=== PATIENT | female | born 1935 | race African-American/Black ===

== ENCOUNTER 2023-11-24 15:59 | Inpatient (IN) | payer MEDICARE, BC ==
[~2023-11-24] VITALS: Ht 142.2 cm; Wt 40.7 kg
[2023-11-24 19:30] VITALS: PULSE 64; RESP 20; O2SAT 98
[2023-11-24 20:17] LABS: Chloride 107 mmol/L (98-107); Potassium 3.4 mmol/L (3.5-5.1); Sodium 141 mmol/L (136-145)
[2023-11-24 20:18] LABS: Anion Gap 6 (5-15); Carbon Dioxide 28 mmol/L (20-30)
[2023-11-24 20:20] LABS: Basophils # (auto) 0.1 10 ^3/uL (0-0.2); Basophils % (auto) 0.4 % (0.0-2.0); Eosinophils # (auto) 0.2 10 ^3/uL (0-0.8); Eosinophils % (auto) 1.5 % (0.0-7.0); Hematocrit 36.5 % (36.0-46.0); Lymphocytes # (auto) 1.2 10 ^3/uL (0.4-5.4); Lymphocytes % (auto) 8.2 % (10.0-50.0); Mean Corpuscular Hemoglobin 29.1 pg (28.0-32.0); Mean Corpuscular Hgb Conc. 32.7 g/dL (32.0-36.0); Mean Corpuscular Volume 88.9 fL (80.0-100.0); Monocytes # (auto) 0.7 10 ^3/uL (0-1.3); Neutrophils # (auto) 12.5 10 ^3/uL (1.6-8.6); Neutrophils % (auto) 84.9 % (37.0-80.0); Nucleated Red Blood Cells % 0.1 %; Red Blood Cells 4.11 10^6/uL (4.0-5.20); Red Cell Distribution Width 16.5 % (11.8-14.3); White Blood Cell 14.8 10^3/uL (4.4-10.8)
[2023-11-24 20:24] LABS: BUN/Creatinine Ratio 14.9 (10.0-20.0); Blood Urea Nitrogen 13 mg/dL (9-23); Glucose 86 mg/dL (74-106)
[2023-11-24 20:34] LABS: INR 1.03 (0.9-1.15); Partial Thromboplastin Time 24.5 SEC (24.5-34.5); Prothrombin Time 10.8 sec (9.3-11.8)
[2023-11-24] MEDS: MORPHINE SULFATE INJ 2 MG/ml SYRG IV ONE (21:12)
[2023-11-24] MEDS: ONDANSETRON HCL 4 MG/2 ML VIAL IV ONE (21:12)
[2023-11-24] MEDS ORDERED: ONDANSETRON HCL 4 MG/2 ML VIAL IV PRN (21:15)
[2023-11-24] MEDS ORDERED: DOCUSATE SOD 100 MG CAP PO PRN (21:15)
[2023-11-24] MEDS ORDERED: ACETAMINOPHEN 325 MG TAB PO PRN (21:15)
[2023-11-24] MEDS ORDERED: HYDROcodone-ACET 5/325MG TAB PO PRN (21:15)
[2023-11-24] MEDS ORDERED: hydrALAZINE HCL 20 MG/ML VL IV PRN (21:15)
[2023-11-24] MEDS: SODIUM CHLOR 0.9% PF (SALINE LOCK) 10ML VIAL/SYR IV SCH (21:37)
[2023-11-24] MEDS: DONEPEZIL HYDROCHLORIDE 5 MG TAB PO SCH (21:53)
[2023-11-24] MEDS: POTASSIUM CHL 20 Meq TABLET PO ONE (21:54)
[2023-11-24] MEDS: D5W/SOD CHL 0.45% 1,000 ML IV SCH (21:55)
[2023-11-24] MEDS ORDERED: NITROGLYCERIN 0.4 MG SL TAB SL PRN (22:15)
[2023-11-24] MEDS ORDERED: MORPHINE SULFATE INJ 2 MG/ml SYRG IV PRN (22:15)
[2023-11-24 23:39] LABS: Urine Bacteria FEW /hpf (None Seen); Urine Blood Negative /uL (Negative); Urine Clarity Clear (Clear); Urine Protein, UAD Negative (Negative); Urine Specific Gravity 1.011 (1.001-1.035); Urine Urobilinogen Normal (Negative); Urine WBC <1 /hpf (0 - 5)
[2023-11-24 23:46] LABS: Urine Color Straw (Yellow)
[2023-11-25] VITALS (9 sets, daily range): BP systolic 140–152; BP diastolic 75–96; PULSE 56–76; RESP 14–20; TEMP 97.2–99; O2SAT 77–98
[2023-11-25 06:10] LABS: Basophils # (auto) 0.1 10 ^3/uL (0-0.2); Basophils % (auto) 0.8 % (0.0-2.0); Eosinophils # (auto) 0.3 10 ^3/uL (0-0.8); Eosinophils % (auto) 4.2 % (0.0-7.0); Hematocrit 33.1 % (36.0-46.0); Hemoglobin 11.1 g/dL (12.2-16.2); Lymphocytes # (auto) 1.2 10 ^3/uL (0.4-5.4); Lymphocytes % (auto) 14.9 % (10.0-50.0); Mean Corpuscular Hemoglobin 29.6 pg (28.0-32.0); Mean Corpuscular Hgb Conc. 33.6 g/dL (32.0-36.0); Mean Corpuscular Volume 88.1 fL (80.0-100.0); Monocytes # (auto) 0.5 10 ^3/uL (0-1.3); Monocytes % (auto) 6.2 % (0.0-12.0); Neutrophils # (auto) 6.2 10 ^3/uL (1.6-8.6); Neutrophils % (auto) 73.9 % (37.0-80.0); Nucleated Red Blood Cells % 0.1 %; Red Blood Cells 3.76 10^6/uL (4.0-5.20); Red Cell Distribution Width 16.3 % (11.8-14.3); White Blood Cell 8.3 10^3/uL (4.4-10.8)
[2023-11-25 06:17] LABS: Alanine Aminotransferase 20 U/L (7-40); Albumin 3.4 g/dL (3.2-4.8); Alkaline Phosphatase 72 U/L (46-116); Anion Gap 5 (5-15); Aspartate Aminotransferase 31 U/L (13-40); BUN/Creatinine Ratio 14.5 (10.0-20.0); Bilirubin, Total 0.8 mg/dL (0.2-1.0); Blood Urea Nitrogen 12 mg/dL (9-23); Calcium 8.5 mg/dL (8.7-10.4); Carbon Dioxide 27 mmol/L (20-30); Chloride 108 mmol/L (98-107); Glucose 88 mg/dL (74-106); Potassium 4.3 mmol/L (3.5-5.1); Sodium 140 mmol/L (136-145)
[2023-11-25 06:18] LABS: Total Protein 6.2 g/dL (5.7-8.2)
[2023-11-25] MEDS: amLODIPine BESYLATE 5 MG TAB PO SCH (10:00)
[2023-11-25] MEDS: levoFLOXacin 500MG 100 ML IV ONE (10:17)
[2023-11-25] MEDS: ENOXAPARIN SOD 30 MG/0.3 ML SYRINGE SC SCH (10:19)
[2023-11-25] MEDS: MORPHINE SULFATE INJ 2 MG/ml SYRG IV PRN (15:51)
[2023-11-25] MEDS: hydrALAZINE HCL 20 MG/ML VL IV PRN (22:11)
[2023-11-26] VITALS (7 sets, daily range): BP systolic 123–160; BP diastolic 65–87; PULSE 18–98; RESP 15–16; TEMP 97.8–99; O2SAT 92–95
[2023-11-26 09:25] LABS: Basophils # (auto) 0.1 10 ^3/uL (0-0.2); Basophils % (auto) 0.4 % (0.0-2.0); Eosinophils # (auto) 0.1 10 ^3/uL (0-0.8); Eosinophils % (auto) 1.2 % (0.0-7.0); Hematocrit 38.4 % (36.0-46.0); Hemoglobin 12.4 g/dL (12.2-16.2); Lymphocytes # (auto) 1.3 10 ^3/uL (0.4-5.4); Lymphocytes % (auto) 10.9 % (10.0-50.0); Mean Corpuscular Hemoglobin 29.5 pg (28.0-32.0); Mean Corpuscular Hgb Conc. 32.3 g/dL (32.0-36.0); Mean Corpuscular Volume 91.3 fL (80.0-100.0); Monocytes # (auto) 0.8 10 ^3/uL (0-1.3); Monocytes % (auto) 6.5 % (0.0-12.0); Neutrophils # (auto) 9.6 10 ^3/uL (1.6-8.6); Nucleated Red Blood Cells % 0.1 %; Red Blood Cells 4.21 10^6/uL (4.0-5.20); Red Cell Distribution Width 16.7 % (11.8-14.3); White Blood Cell 11.8 10^3/uL (4.4-10.8)
[2023-11-26] MEDS: levoFLOXacin 250MG 50 ML IV SCH (09:57)
[2023-11-26 10:07] LABS: Alanine Aminotransferase 15 U/L (7-40); Albumin 3.5 g/dL (3.2-4.8); Alkaline Phosphatase 78 U/L (46-116); Anion Gap 4 (5-15); Aspartate Aminotransferase 25 U/L (13-40); BUN/Creatinine Ratio 8.9 (10.0-20.0); Blood Urea Nitrogen 7 mg/dL (9-23); Calcium 9.1 mg/dL (8.5-10.1); Carbon Dioxide 26 mmol/L (20-30); Chloride 108 mmol/L (98-107); Glucose 85 mg/dL (74-106); Potassium 4.5 mmol/L (3.5-5.1); Sodium 138 mmol/L (136-145)
[2023-11-26 10:08] LABS: Bilirubin, Total 0.8 mg/dL (0.2-1.0); Total Protein 6.3 g/dL (5.7-8.2)
[2023-11-27] VITALS (7 sets, daily range): BP systolic 100–113; BP diastolic 51–63; PULSE 52–76; RESP 16–18; TEMP 97.6–99.1; O2SAT 90–98
[2023-11-27] MEDS ORDERED: DexAMETHasone SOD PHOS 10MG/1ML VIAL INJ ONE (07:40)
[2023-11-27] MEDS ORDERED: PROPOFOL 10 MG/ML 20 ML IV ONE (07:40)
[2023-11-27] MEDS ORDERED: LIDOCAINE 1% INJ PF 5ML AMP ONE (07:40)
[2023-11-27] MEDS ORDERED: GLYCOPYRROLATE 0.2 MG/ML 1ML VIAL ONE (07:40)
[2023-11-27] MEDS ORDERED: ONDANSETRON HCL 4 MG/2 ML VIAL ONE (07:40)
[2023-11-27] MEDS ORDERED: KETOROLAC TROMETH 30 MG/ML 1ML VIAL ONE (07:40)
[2023-11-27 08:17] LABS: Alanine Aminotransferase 12 U/L (7-40); Alkaline Phosphatase 70 U/L (46-116); Anion Gap 9 (5-15); Aspartate Aminotransferase 24 U/L (13-40); Calcium 8.7 mg/dL (8.5-10.1); Carbon Dioxide 22 mmol/L (20-30); Chloride 107 mmol/L (98-107); Glucose 87 mg/dL (74-106); Potassium 3.5 mmol/L (3.5-5.1); Sodium 138 mmol/L (136-145)
[2023-11-27 08:18] LABS: BUN/Creatinine Ratio 12.9 (10.0-20.0); Blood Urea Nitrogen 8 mg/dL (9-23)
[2023-11-27 08:19] LABS: Albumin 3.4 g/dL (3.2-4.8)
[2023-11-27 08:20] LABS: Total Protein 5.9 g/dL (5.7-8.2)
[2023-11-27 08:21] LABS: Basophils # (auto) 0 10 ^3/uL (0-0.2); Basophils % (auto) 0.4 % (0.0-2.0); Eosinophils # (auto) 0.2 10 ^3/uL (0-0.8); Eosinophils % (auto) 1.9 % (0.0-7.0); Hematocrit 37.8 % (36.0-46.0); Hemoglobin 12.2 g/dL (12.2-16.2); Lymphocytes # (auto) 0.9 10 ^3/uL (0.4-5.4); Lymphocytes % (auto) 8.5 % (10.0-50.0); Mean Corpuscular Hemoglobin 29.3 pg (28.0-32.0); Mean Corpuscular Hgb Conc. 32.4 g/dL (32.0-36.0); Mean Corpuscular Volume 90.7 fL (80.0-100.0); Monocytes # (auto) 0.7 10 ^3/uL (0-1.3); Monocytes % (auto) 6.4 % (0.0-12.0); Neutrophils % (auto) 82.8 % (37.0-80.0); Red Blood Cells 4.17 10^6/uL (4.0-5.20); Red Cell Distribution Width 16.7 % (11.8-14.3); White Blood Cell 10.8 10^3/uL (4.4-10.8)
[2023-11-27] MEDS ORDERED: DexAMETHasone SOD PHOS 4 MG/1ML SDV INJ ONE (08:24)
[2023-11-27 08:37] LABS: Bilirubin, Total 0.7 mg/dL (0.2-1.0)
[2023-11-27] MEDS ORDERED: KETAMINE 50mg/ML 1ml syringe ONE (10:08)
[2023-11-27] MEDS ORDERED: ceFAZolin 1GM VL ONE (10:28)
[2023-11-27] MEDS ORDERED: SODIUM CHLORIDE LOCK 10 ML ONE ×2 (10:41→11:28)
[2023-11-27] MEDS ORDERED: ePHEDrine SULFATE 50 MG/ML AMP ONE (11:27)
[2023-11-27] MEDS: ceFAZolin 1GM/50ML 50 ML IV SCH (14:24)
[2023-11-27] MEDS: LACTATED RINGER'S 1,000 ML IV SCH (14:24)
[2023-11-27] MEDS: SODIUM CHLOR 0.9% PF (SALINE LOCK) 10ML VIAL/SYR IV SCH (14:25)
[2023-11-28] VITALS (7 sets, daily range): BP systolic 107–153; BP diastolic 60–74; PULSE 50–100; RESP 16–20; TEMP 96.8–98; O2SAT 87–98
[2023-11-28 07:44] LABS: Anion Gap 6 (5-15); Calcium 9.1 mg/dL (8.5-10.1); Carbon Dioxide 25 mmol/L (20-30); Chloride 107 mmol/L (98-107); Potassium 4.2 mmol/L (3.5-5.1); Sodium 138 mmol/L (136-145)
[2023-11-28 07:50] LABS: BUN/Creatinine Ratio 14.3 (10.0-20.0); Blood Urea Nitrogen 10 mg/dL (9-23); Glucose 107 mg/dL (74-106)
[2023-11-28 08:03] LABS: Basophils # (auto) 0 10 ^3/uL (0-0.2); Basophils % (auto) 0.1 % (0.0-2.0); Eosinophils # (auto) 0 10 ^3/uL (0-0.8); Hematocrit 36.8 % (36.0-46.0); Hemoglobin 11.8 g/dL (12.2-16.2); Lymphocytes # (auto) 0.9 10 ^3/uL (0.4-5.4); Lymphocytes % (auto) 7.7 % (10.0-50.0); Mean Corpuscular Hemoglobin 29.5 pg (28.0-32.0); Mean Corpuscular Hgb Conc. 32.2 g/dL (32.0-36.0); Mean Corpuscular Volume 91.9 fL (80.0-100.0); Monocytes # (auto) 0.9 10 ^3/uL (0-1.3); Monocytes % (auto) 7.3 % (0.0-12.0); Neutrophils # (auto) 10.1 10 ^3/uL (1.6-8.6); Neutrophils % (auto) 84.9 % (37.0-80.0); Nucleated Red Blood Cells % 0.1 %; Red Cell Distribution Width 16.6 % (11.8-14.3)
[2023-11-28] MEDS: HYDROcodone-ACET 5/325MG TAB PO PRN (10:16)
[2023-11-28] MEDS ORDERED: AMLO1TAB21 PO (20:59)
[2023-11-28] MEDS ORDERED: DONE5TAB80 PO (20:59)
[2023-11-29 05:00] VITALS: BP 155/83; PULSE 55; RESP 18; TEMP 97.4; O2SAT 91
[2023-11-29 07:05] LABS: Alanine Aminotransferase 15 U/L (7-40); Albumin 3.3 g/dL (3.2-4.8); Alkaline Phosphatase 62 U/L (46-116); Anion Gap 5 (5-15); Aspartate Aminotransferase 47 U/L (13-40); BUN/Creatinine Ratio 14.3 (10.0-20.0); Blood Urea Nitrogen 8 mg/dL (9-23); Calcium 8.5 mg/dL (8.5-10.1); Carbon Dioxide 27 mmol/L (20-30); Chloride 107 mmol/L (98-107); Glucose 89 mg/dL (74-106); Potassium 3.6 mmol/L (3.5-5.1); Sodium 139 mmol/L (136-145)
[2023-11-29 07:06] LABS: Bilirubin, Total 0.4 mg/dL (0.2-1.0); Total Protein 5.8 g/dL (5.7-8.2)
[2023-11-29 08:00] VITALS: BP 138/78; PULSE 66; RESP 16; TEMP 97.4; O2SAT 97
[2023-11-29 09:00] VITALS: BP 138/78; PULSE 66; RESP 16; TEMP 97.4; O2SAT 92
[2023-11-29 09:31] VITALS: BP 138/78; PULSE 66; RESP 16; TEMP 97.4; O2SAT 97
[2023-11-29 12:50] VITALS: BP 151/78; PULSE 60; RESP 16; TEMP 97.9; O2SAT 96
== END 2023-11-29 14:15 | DRG 482 ==
LOC: ER 15:59 → EDBD 15:59 → TELE 22:08 → TELE-WESTW 11-25 10:54
PROVIDERS: ADMIT Internal Medicine Pulmonary Disease; ATTEND Internal Medicine Pulmonary Disease
PROC: 0QS734Z Reposition Left Upper Femur with Internal Fixation Device, Percutaneous Approach (ICD-10-PCS; principal; 2023-11-27 10:03)
DX: S72.002A Fracture of unspecified part of neck of left femur, initial encounter for closed fracture (principal); D72.829 Elevated white blood cell count, unspecified; I10 Essential (primary) hypertension; F03.90 Unspecified dementia, unspecified severity, without behavioral disturbance, psychotic disturbance, mood disturbance, and anxiety; E78.5 Hyperlipidemia, unspecified; Z88.0 Allergy status to penicillin; W18.39XA Other fall on same level, initial encounter; Y93.89 Activity, other specified; Y92.89 Other specified places as the place of occurrence of the external cause; Y99.8 Other external cause status
CPT/HCPCS: 36415; 71045; 72192; 73502; 76000; 80048; 80053; 81001; 83036; 83735; 84443; 85025; 85610; 85730; 93005; 93306; 96365; 96375; 97110; 97116; 97163; G0378; J0690; J1100; J1885; J1956; J2405; J2704